=== PATIENT | male | born 1960 | race Caucasian/White ===

== ENCOUNTER 2019-10-29 06:58 | Day surgery (SDC) | payer OTHER ==
[~2019-10-29 06:58] MED LIST: Acetaminophen TAB* 325 MG PO ONE; Buffered Lidocaine 1% SYRIN* 1 ML/SYRINGE INTRADERM ONE; Famotidine IV* 10 MG/ML 2 ML (20 mg) IV ONE; Lactated Ringers 1000 ML Bag* 1,000 ML IV SCH
[2019-10-29] MEDS ORDERED: Acetaminophen TAB* 325 MG ONE (07:19)
[2019-10-29] MEDS ORDERED: Clindamycin 900 MG/D5W BAG(*) 900 MG/50 ML BAG IVPB ONE (07:19)
[2019-10-29] MEDS ORDERED: Famotidine IV* 10 MG/ML 2 ML (20 mg) ONE (07:20)
[2019-10-29] MEDS ORDERED: Midazolam* 1 MG/ML 2 ML VIAL (2 MG) ONE (08:10)
[2019-10-29] MEDS ORDERED: fentaNYL* 50 MCG/ML 2 ML VIAL (100 MCG VIAL) ONE ×2 (08:10→09:43)
[2019-10-29] MEDS ORDERED: Bupivacaine 0.25% SDV* 30 ML ONE (08:36)
[2019-10-29] MEDS ORDERED: Lidocaine 1% MPF* 2 ML VIAL ONE (08:38)
[2019-10-29] MEDS ORDERED: Betamethasone INJ* 6 MG/ML 5 ML VIAL (30 MG) ONE (08:38)
[2019-10-29] MEDS ORDERED: Lidocaine 2% PF * 5 ML VIAL ONE (08:51)
[2019-10-29] MEDS ORDERED: Levalbuterol HFA INHALER* 1 PUFF MDI ONE (09:32)
[2019-10-29] MEDS ORDERED: Ondansetron INJ* 2 MG/ML VIAL ONE (09:34)
[2019-10-29] MEDS ORDERED: Propofol* 10 MG/ML 20 ML BTL ONE (09:34)
[2019-10-29] MEDS ORDERED: diPHENhydraMINE IV* 50 MG/ML 1 ml VIAL (BENADRYL) IV PRN (09:39)
[2019-10-29] MEDS ORDERED: HYDROcodone/ACETAMIN 5-325 MG* 1 TAB PO PRN (09:39)
[2019-10-29] MEDS ORDERED: DiMENhydriNATE IV* 50 MG/ML VIAL IV PUSH PRN (09:39)
[2019-10-29] MEDS ORDERED: Ondansetron INJ* 2 MG/ML VIAL IV PRN (09:39)
[2019-10-29] MEDS ORDERED: Naloxone* 0.4 MG/ML 1 ML VIAL IV PRN (09:39)
[2019-10-29] MEDS ORDERED: Levalbuterol 1.25MG/0.5ML NEB INH PRN (09:39)
[2019-10-29 10:49] VITALS: BP 121/78
--- NOTE | 2019-10-30 20:25 | OP ---
DATE OF OPERATION: 10/29/19 - [facility] DATE OF : 60 SURGEON: Feliciano Leach MD MUCK MINER: RAFAEL Henao. An assistant chief nursing officer was needed for the procedure to aid in positioning of the arm and retraction. ANESTHESIOLOGIST: Dr. Melvin. ANESTHESIA: General. PRE-OP DIAGNOSES: 1. Right middle trigger finger. 2. Right carpal tunnel syndrome. 3. Right cubital tunnel syndrome. 4. Left thumb carpometacarpal degenerative joint disease. POST-OP DIAGNOSES: 1. Right middle trigger finger. 2. Right carpal tunnel syndrome. 3. Right cubital tunnel syndrome. 4. Left thumb carpometacarpal degenerative joint disease. OPERATIVE PROCEDURE: 1. Right middle trigger finger release. 2. Right endoscopic carpal tunnel release. 3. Right in situ cubital tunnel release. 4. Left thumb carpometacarpal joint steroid injection. INDICATIONS: Mr. Field has the aforementioned conditions. He actually has bilateral carpal and cubital tunnel syndrome. We decided to proceed with the right side first. Additionally, he gets the thumb base pain, so we decided to try a steroid injection there. We discussed risks and benefits. He wanted to proceed. ESTIMATED BLOOD LOSS: 2 mL. COMPLICATIONS: None. FINDINGS: See above and below. DESCRIPTION OF PROCEDURE: Mr. Field was seen in the preoperative holding area. The correct site, side, and procedures were identified. We came back to the operating room. The arm was prepped and draped in the usual fashion and a time-out was performed. The arm was exsanguinated with the Esmarch and the tourniquet was inflated. Initially, I went ahead and prior to draping, I had injected the left thumb carpometacarpal joint with 2 mL of 1% lidocaine and 12 mg of betamethasone using a 25-gauge needle. After the draping was done, I made a 1 cm longitudinal incision over the A1 carolina of the right middle finger. Dissection was carried down. Full- thickness flaps were raised off the tendon sheath. The A1 carolina was incised longitudinally. The tenotomy scissors were used to complete the release distally and proximally. Once there was full release of the A1 carolina and of the fascia proximal to that, I irrigated out the wound and skin was closed with 4-0 nylon suture. I then made a 1 cm transverse incision just ulnar to the palmaris longus tendon. Dissection was carried down through the subcutaneous tissue and the distal antebrachial fascia was spread transversely with the tenotomy scissors. A 2-prong skin hook was placed. The carpal tunnel was dilated open and then the MicroAire endoscopic carpal tunnel system was introduced into the carpal tunnel. The release was carried out from distal to proximal. Once I had confirmed that we had excellent release distally, I released the distal antebrachial fascia proximally with the tenotomy scissors. The wound was irrigated out and closed with 4-0 Prolene suture and a Steri-Strip. I then made a curvilinear incision over the cubital tunnel. Dissection was carried down through the subcutaneous tissue. He had a prominent medial antebrachial cutaneous nerve that was preserved throughout the procedure. The fascia overlying the ulnar nerve was released proximally and that was carried out proximally past the arcade of [place] with the use of an appendiceal retractor for visualization. Painting's ligament was then released. The superficial FCU fascia was released. The 2 heads of the FCU were split. The subfascial layer was released. At this point, I confirmed the decompression. There was no ulnar nerve instability, so we obtained hemostasis with the Bovie. Wound was irrigated out. Subcutaneous tissue was reapproximated with 3-0 Vicryl suture. Skin was closed with 3-0 Monocryl and Steri-Strips. 0.25% Marcaine was infiltrated around all of the operative areas. Wounds were dressed and he was taken to the recovery room in stable condition. [id number]/[facility] #: [id number] ROSENDA
== END 2019-10-29 11:15 | disposition home or self-care (01) ==
LOC: OREAST 06:58
PROVIDERS: ATTEND Orthopaedic Surgery Hand Surgery
DX: G56.01 Carpal tunnel syndrome, right upper limb (principal); G56.21 Lesion of ulnar nerve, right upper limb; M65.331 Trigger finger, right middle finger; E11.9 Type 2 diabetes mellitus without complications; Z79.84 Long term (current) use of oral hypoglycemic drugs; J44.9 Chronic obstructive pulmonary disease, unspecified; E78.00 Pure hypercholesterolemia, unspecified; M19.90 Unspecified osteoarthritis, unspecified site; I10 Essential (primary) hypertension; F41.8 Other specified anxiety disorders; I25.10 Atherosclerotic heart disease of native coronary artery without angina pectoris; Z95.2 Presence of prosthetic heart valve; Z95.5 Presence of coronary angioplasty implant and graft; F17.210 Nicotine dependence, cigarettes, uncomplicated
CPT/HCPCS: A9270-GY; J0702; J2250; J2405; J2704; J3010; J3490

== ENCOUNTER 2019-11-15 19:58 | Emergency (ER) | payer OTHER ==
--- OUTSIDE RECORDS SUMMARY | 2019-11-15 20:06 | XMS REPORT | Continuity of Care Document ---
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 Onset: 01/16/2016 Coronary arteriosclerosis Fany Whelan M.D. Onset: 01/25/2015 Chronic obstructive lung disease Arielle Romeo FNP Onset: 09/24/2013 Tobacco user Ingrid Hassan, GLENNY Onset: 08/28/2011 Gastroesophageal reflux disease Ingrid Hassan, GLENNY Onset: 08/28/2011 Benign essential hypertension Ingrid Hassan, TRENCHER DRIVER Onset: 08/28/2011 Heart valve replacement Carlos Amaral M.D., Onset: 02/19/2017 [facility] Mitral valve disorder Carlos Amaral M.D., Onset: 02/19/2017 [facility] Electrocardiogram abnormal Carlos Amaral M.D., Onset: 02/19/2017 [facility] Hyperlipidemia Carlos Amaral M.D., Onset: 02/19/2017 [facility] Ganglion cyst of left wrist Ariel Tate M.D. Onset: 04/15/2018 Depressive disorder Arielle Romeo FNP Onset: 05/28/2018 Disorder of shoulder Annette Mary MD Onset: 07/03/2018 Disorder of bursa of shoulder region Annette Mary MD Onset: 07/03/2018 Localized, primary osteoarthritis of Annette Mary MD Onset: 07/03/2018 the shoulder region Sleep apnea Arielle Romeo FNP Onset: 06/05/2019 Social History Type Date Description Comments Sex Unknown Tobacco Use Start: Unknown current cigarette 3/4 ppd smoker ETOH Use Has consumed alcohol in the past Tobacco Use Start: 11/18/72 Heavy tobacco smoker 1 PPD. Failed (more than 10 chantix. Patches, cigarettes/day) had to stop due to not being able to switch shoulder. Recreational Drug Use Former Drug User marijuana Smoking Status Reviewed: 10/06/19 Heavy tobacco smoker 1 PPD. Failed (more than 10 chantix. Patches, cigarettes/day) had to stop due to not being able to switch shoulder. Allergies, Adverse Reactions, Alerts Active Allergies Reaction Severity Comments Date Shellfish-derived 05/01/2010 Products Penicillin 05/01/2010 Eggplant 07/12/2011 Kern 11/20/2010 IVP Dye 11/20/2010 Altace metalic taste in 06/24/2006 mouth Varenicline Tartrate Nausea and Vomiting 05/28/2018 Ertugliflozin numbness of legs 07/25/2018 Iodine 09/01/2018 Medications Active Medications SIG Qnty Indications Ordering Date Provider Nicotine one a day on dry 28units Z71.6 [place], 10/06/2019 21mg/24HR hairless skin of Jenaris, Patches 24HR arms, chest or [employer] back Cyclobenzaprine HCL 1 by mouth three 30tabs Annette Mary, 06/18/2019 10mg times a day as MD Tablets needed muscle spasms Fluticasone Propionate Use 1 [place] Om 16units [place], 04/22/2019 Each Nostril as Arielle, 50mcg/Act Suspension Needed [employer] Glipizide 1 by mouth every 90tabs [place], 01/25/2019 5mg Tablets day JenniferDIXIE drake Montelukast Sodium take one tablet 90tabs [place], 09/16/2018 10mg by mouth every Jenniferleigh, Tablets evening [employer] Metformin HCL ER take two tablets 60tabs E11.65 [place], 08/28/2018 500mg by mouth once a Jenniferleigh, Tablets ER 24HR day [employer] Diclofenac Sodium ER 1 by mouth every 90tabs [place], 11/20/2017 day with food Christellefervidal, 100mg Tablets ER 24HR [employer] Simvastatin 1 tab by mouth 90tabs E78.5 [place], 03/01/2017 40mg Tablets every evening DIXIE Guzmán Fluocinolone Acetonide apply as needed 60gm Whelan, 08/12/2015 to valeriy Soares M.D. 0.025% Ointment Proair HFA 2 puffs every 4 17.00gm [place], 08/03/2015 108(90Base) hours as needed Arielle mcg/Act Aerosol [employer] Metoprolol Succinate take 1 tablet by 90tabs [place], 07/04/2015 ER mouth every day Arielle, 25mg Tablets ER 24HR [employer] Advair Diskus one inhalation 60units J44.9 [place], 04/15/2015 2x/day mdd 2 Arielle, 250-50mcg/Dose Aerosol inhalation mdd 2 [employer] inhalation Duloxetine HCL 1 by mouth every 90caps [place], 07/27/[address] Ashley Guzmán Zolpidem Tartrate one by mouth 30tabs [place]une, 10mg every night at Arielle Tablets bedtime as needed [employer] insomnia. Reference #: [id number] Pantoprazole Sodium 1 by mouth every 90tabs Clune, 40mg day Arsalan Guzmán DR Aspirin 1 by mouth every Unknown 81mg Tablets day Lisinopril 1 by mouth every 90tabs Clune, 5mg Tablets day DIXIE Guzmán Medications Administered in Office Medication SIG Qnty Indications Ordering Provider Date Methylprednisolone acetate Augustina Cobos, 09/01/2018 (Depomedrol) 80mg injection RPAC Injection Depomedrol 40mg/1cc Augustina Cobos, 09/01/2018 (methylprednisolone acetate) RPAC Injection Methylprednisolone acetate Augustina Cobos, 05/19/2018 (Depomedrol) 80mg injection RPAC Injection Depomedrol 40mg/1cc Augustina Cobos, 05/19/2018 (methylprednisolone acetate) RPAC Injection Methylprednisolone acetate Augustina Cobos, 10/22/2017 (Depomedrol) 80mg injection RPAC Injection Depomedrol 40mg/1cc Augustina Cobos, 10/22/2017 (methylprednisolone acetate) RPAC Injection Depomedrol 40mg/1cc Ally Avelar MD 09/05/2007 (methylprednisolone acetate) Injection Depomedrol 40mg/1cc Ally Avelar MD 06/16/2007 (methylprednisolone acetate) Injection Depomedrol 40mg/1cc Ally Avelar MD 06/16/2007 (methylprednisolone acetate) Injection Immunizations CPT Code Status Date Vaccine Lot # [id number] Given 10/06/2019 Influenza Virus Vaccine, Quadrivalent, 36 Mos+, [id number] .[id number] 43024 Given 08/28/2018 Influenza Virus Vaccine, Quadrivalent, 36 Mos+, [id number] .[id number] 89339 Given 07/25/2017 Influenza Virus Vaccine, Quadrivalent, Slit Virus, Im Use 25677 Given 09/06/2016 Influenza Virus Vaccine Split Virus Use For [id number] Individual 3Yr Older [id number] Given 07/27/2015 Influenza Vaccine (Fluzone) Age 3 And Older [id number] 37397 Given 07/27/2015 Pneumococcal Conjugate Vaccine 13 Valent For [id number] Intramuscular Use 22909 Given 09/15/2014 flu vaccination 40140 Given 09/24/2013 flu vaccination 67545 Given 12/12/2012 Tdap injection 79850 Given 11/07/2012 flu vaccination 08244 Given 08/29/2011 flu vaccination 37615 Given 10/05/2010 flu vaccination 24437 Given 12/13/2009 H1N1 Immuniation Adminstration 44091 Given 12/13/2009 H1N1 Immuniation Adminstration 13622 Given 10/28/2009 flu vaccination 35286 Given 08/31/2008 flu vaccination 59546 Given 08/21/2007 flu vaccination 19866 Given 02/07/2007 flu vaccination 88950 Given 09/12/2006 flu vaccination 16707 Given 10/08/2005 flu vaccination 37656 Given 09/14/2005 Pneumovax Injection 32898 Given 09/14/2005 Tetnus Injection Vital Signs Date Vital Result Comment 10/06/2019 9:01am BP Systolic 132 mmHg BP Diastolic 83 mmHg Body Temperature 97.5 F Heart Rate 84 /min Respiratory Rate 18 /min Height 71 inches 5'11" Weight 260.38 lb BMI (Body Mass Index) 36.3 kg/m2 BSA (Body Surface Area) 2.36 m2 [place] body weight in kilograms 78 kg O2 % BldC Oximetry 100 % Ra 08/14/2019 1:18pm BP Systolic 126 mmHg BP Diastolic 87 mmHg Body Temperature 98.7 F Heart Rate 91 /min Height 71.5 inches 5'11.50" Weight 254.00 lb BMI (Body Mass Index) 34.9 kg/m2 BSA (Body Surface Area) 2.35 m2 [place] body weight in kilograms 79 kg O2 % BldC Oximetry 97 % Results Test Acquired Date Facility Test Result H/L Range Note Laboratory test 10/06/[address] Vitamin D,1,25 <pending> 1 finding [address] [place], [place] [id number] [phone] Comprehensive 10/06/[address] Glucose 126 mg/dL High 74-106 Metabolic Panel [address] [place] [address] [phone] BUN 17 mg/dL Normal 7-18 Creatinine 0.9 mg/dL Normal 0.6-1.3 Glom Filtration Rate, Estimate >60 mL/min >60 If >60 mL/min >60 2 BUN/Creat 18.8 ratio Sodium 139 mmol/L Normal 136-145 Potassium 4.4 mmol/L Normal 3.5-5.1 Chloride 107 mmol/L Normal 98-107 Carbon Dioxide 29 mmol/L Normal 21-32 Anion Gap 3 mEq/L Low 8-16 Calcium 9.1 mg/dL Normal 8.5-10.1 Total Protein 7.1 g/dL Normal 6.4-8.2 Albumin 4.1 g/dL Normal 3.4-5.0 Globulin 3.0 g/dL Normal 1.9-4.3 Alb/Glob 1.4 ratio Bilirubin,Total 0.4 mg/dL Normal 0.2-1.0 Sgot/Ast 18 U/L Normal 15-37 SGPT/Alt 36 U/L Normal 12-78 Alkaline Phosphatase 90 U/L Normal 45-117 Glycohemoglobin 10/06/[address] Glycohemoglobin 7.2 % High 4.2-6.3 [address] (A1c) [place] [address] [phone] eAG 160 mg/dL Glycohemoglobin 07/21/[address] Glycohemoglobin 7.1 % High 4.2-6.3 4, [address] (A1c) [place] [address] [phone] eAG 157 mg/dL Glycohemoglobin 04/23/[address] Glycohemoglobin 7.4 % High 4.2-6.3 6, [address] (A1c) [place] [address] [phone] eAG 166 mg/dL CBC W/Automated [facility]/23/[address] [facility] [address] White Blood 7.0 K/uL Normal 3.4-10.[address] [place] [address] [phone] Red Blood Count 5.47 M/uL Normal 4.20-5.80 Hemoglobin 13.8 gm/dL Normal 12.8-17.0 Hematocrit 42.8 % Normal 38.0-48.0 Mean Cell Volume 78.2 fl Low 80.0-96.0 Mean Corpuscular HGB 25.2 pg Low 27.0-33.0 Mean Corpuscular HGB Conc 32.2 g/dL Normal 31.7-36.0 Platelet Count 191 K/uL Normal 155-360 Red Cell Distri Width SD 44.7 fl Normal 36-51 Red Cell Distri Width %CV 15.8 % Normal 11.6-15.8 Mean Platelet Volume 11.6 fl High 6.6-10.6 Neut% 64.4 % Normal 33.0-73.0 Lymph % 25.3 % Normal 20.0-42.0 [place] % 8.1 % Normal 0.0-10.0 Eo% 1.6 % Normal 0.0-6.6 Bas% 0.3 % Normal 0.0-1.1 Immature Grans 0.3 % Normal 0.0-5.0 NRBC % 0.0 /100WBC < 10/ 100 WBC Neut# 4.51 K/uL Normal 1.8-7.0 Lymph # 1.77 K/uL Normal 1.0-4.0 [place] # 0.57 K/uL Normal 0.0-0.8 Eos # 0.11 K/uL Normal 0.0-0.5 Baso # 0.02 K/uL Normal 0.0-0.1 Immature Grans Absolute 0.02 K/uL NRBC # 0.00 K/uL 1 E55.9 Z01.818 E11.9 2 Note: Persistent reduction for 3 months or more in an eGFR <60 mL/min/1.73 m2 defines CKD. Patients with eGFR values >/=60 mL/min/1.73 m2 may also have CKD if evidence of persistent proteinuria is present. The original MDRD equation for estimated GFR is not valid for patients less than 18 years of age. Additional information may be found at www.kdoqi.org. 3 Elevated levels of HbA1c suggest the need for more aggressive treatment of glycemia. The [place] [employer] recommends that a primary goal of therapy should be a HbA1c of <7% and that physicians should re-evaluate the treatment regimen in patients with HbA1c values consistently >8%. 4 E11.3293 5 Elevated levels of HbA1c suggest the need for more aggressive treatment of glycemia. The [place] [employer] recommends that a primary goal of therapy should be a HbA1c of <7% and that physicians should re-evaluate the treatment regimen in patients with HbA1c values consistently >8%. 6 E11.9 R23.3 7 Elevated levels of HbA1c suggest the need for more aggressive treatment of glycemia. The [place] [employer] recommends that a primary goal of therapy should be a HbA1c of <7% and that physicians should re-evaluate the treatment regimen in patients with HbA1c values consistently >8%. Procedures Date Code Description Status 08/14/2019 43747 Pare Hyperkeratotic Lesion, 2-4 Completed 07/02/2019 29731 Eye Exam Est Patient Comprehensive Completed 06/04/2019 02384 Radiology, C-Spine, 2 Or 3 Views Completed 05/13/2019 04620 Pare Hyperkeratotic Lesion, 2-4 Completed 05/07/2019 [id number] Diabetic Foot Exam Completed 09/13/2011 [id number] Colonoscopy Completed Medical Devices Description No Information Available Encounters Type Date Location Provider Dx Diagnosis Office Visit 10/06/2019 Family [facility] [place], Z01.818 Encounter for other 9:00a Eliel Guzmán, preprocedural [employer] examination F17.210 Nicotine dependence, cigarettes, uncomplicated G56.22 Lesion of ulnar nerve, left upper limb G56.21 Lesion of ulnar nerve, right upper limb G56.03 Carpal tunnel syndrome, bilateral upper limbs E55.9 Vitamin D deficiency, unspecified Z23 Encounter for immunization Z71.6 Tobacco abuse counseling Office Visit 08/13/2019 9:00a Orthopaedic Office Annette Mary, G56.22 Lesion of ulnar nerve, left upper limb G56.21 Lesion of ulnar nerve, right upper limb G56.03 Carpal tunnel syndrome, bilateral upper limbs E11.9 Type 2 diabetes mellitus without complications Office Visit 07/22/2019 Family [place], E11.3293 Type 2 diab 9:45a Medicine KRISTEL OntiverosP with mild RD nonp rtnop without macular edema, bi I10 Essential (primary) hypertension G47.09 Other insomnia M54.12 Radiculopathy, cervical region Office Visit 06/18/2019 Arian Mary M54.12 Radiculopathy, 10:15a Office MD Annette cervical region Office Visit 06/04/2019 Arian Mary M75.101 Unsp rotatr-cuff 1:00p Office MD Annette tear/ruptr of right shoulder, not trauma M75.41 Impingement syndrome of right shoulder M19.011 Primary osteoarthritis, right shoulder M54.12 Radiculopathy, cervical region G56.01 Carpal tunnel syndrome, right upper limb Office Visit 04/23/2019 Family Romeo, E11.9 Type 2 diabetes 9:30a Medicine DIXIE Ontiveros mellitus without RD complications I10 Essential (primary) hypertension F17.210 Nicotine dependence, cigarettes, uncomplicated J44.9 Chronic obstructive pulmonary disease, unspecified R23.3 Spontaneous ecchymoses Office Visit 04/09/2019 Arian Mary M75.101 Unsp rotatr-cuff 1:15p Office MD Annette tear/ruptr of right shoulder, not trauma M75.41 Impingement syndrome of right shoulder M19.011 Primary osteoarthritis, right shoulder G56.01 Carpal tunnel syndrome, right upper limb Assessments Date Code Description Provider 10/06/2019 Z01.818 Encounter for other preprocedural Arielle Romeo FNP examination 10/06/2019 F17.210 Nicotine dependence, cigarettes, Arielle Romeo, [facility] uncomplicated 10/06/2019 G56.22 Lesion of ulnar nerve, left upper limb [place], [facility] 10/06/2019 G56.21 Lesion of ulnar nerve, right upper limb [place], Arielle, [facility] 10/06/2019 G56.03 Carpal tunnel syndrome, bilateral upper [facility], [facility] limbs 10/06/2019 E55.9 Vitamin D deficiency, unspecified [facility] 10/06/2019 Z23 Encounter for immunization [facility] 10/06/2019 Z71.6 Tobacco abuse counseling [facility] 08/14/2019 E11.9 Type 2 diabetes mellitus without True Hi DPM complications 08/14/2019 L84 Corns and callosities True Hi DPM 08/13/2019 G56.22 Lesion of ulnar nerve, left upper limb Annette Mary MD 08/13/2019 G56.21 Lesion of ulnar nerve, right upper limb Annette Mary MD 08/13/2019 G56.03 Carpal tunnel syndrome, bilateral upper Annette Mary MD limbs 08/13/2019 E11.9 Type 2 diabetes mellitus without Annette Mary MD complications 07/22/2019 E11.3293 Type 2 diabetes mellitus with mild [facility] nonproliferative diabetic retinopathy without macular edema, bilateral 07/22/2019 I10 Essential (primary) hypertension [facility], [facility] 07/22/2019 G47.09 Other insomnia [facility], [facility] 07/22/2019 M54.12 Radiculopathy, cervical region [facility], [facility] 07/02/2019 E11.3293 Type 2 diabetes mellitus with mild Sudheer Perdomo MD nonproliferative diabetic retinopathy without macular edema, bilateral 07/02/2019 H25.813 Combined forms of age-related cataract, Sudheer Perdomo MD bilateral 07/02/2019 H04.123 Dry eye syndrome of bilateral lacrimal Sudheer Perdomo MD glands 06/18/2019 M54.12 Radiculopathy, cervical region Annette Mary MD 06/04/2019 M75.101 Unspecified rotator cuff tear or Annette Mary MD rupture of right shoulder, 06/04/2019 M75.41 Impingement syndrome of right shoulder Annette Mary MD 06/04/2019 M19.011 Primary osteoarthritis, right shoulder Annette Mary MD 06/04/2019 M54.12 Radiculopathy, cervical region Annette Mary MD 06/04/2019 G56.01 Carpal tunnel syndrome, right upper Annette Mary MD limb 05/13/2019 E11.9 Type 2 diabetes mellitus without True Hi DPM complications 05/13/2019 L84 Corns and callosities True Hi DPM 04/23/2019 E11.9 Type 2 diabetes mellitus without Arielle Romeo FNP complications 04/23/2019 I10 Essential (primary) hypertension Arielle Romeo FNP 04/23/2019 F17.210 Nicotine dependence, cigarettes, Arielle Romeo FNP uncomplicated 04/23/2019 J44.9 Chronic obstructive pulmonary disease, Arielle Romeo FNP unspecified 04/23/2019 R23.3 Spontaneous ecchymoses Arielle Romeo FNP 04/09/2019 M75.101 Unspecified rotator cuff tear or Annette Mary MD rupture of right shoulder, 04/09/2019 M75.41 Impingement syndrome of right shoulder Annette Mary MD 04/09/2019 M19.011 Primary osteoarthritis, right shoulder Annette Mary MD 04/09/2019 G56.01 Carpal tunnel syndrome, right upper Annette Mary MD limb Plan of Treatment Future Appointment(s):11/20/2019 8:20 am - True Hi DPM at Podiatry [email or web address]/25/2019 9:00 am - Arielle Romeo FNP at [facility]04/01/2020 9:15 am - Sudheer Perdomo MD at [facility]/19/2019 - Arielle Romeo FNPZ01.818 Encounter for other preprocedural examinationComments: Philipp is at higher than average risk for this proposed low to moderate risk procedure due to his chronic medical conditions of COPD, heart disease and DM as well as smoking history. Smoking addressed as noted below. Diabetes while not ideally controlled, has been stable. Heart disease to be assessed by cardiology and as long as stable, there is no contra-indications for the proposed surgery from a primary care perspective.F17.210 Nicotine dependence, cigarettes, uncomplicatedComments:Discussed effects of smoking on wound healing , possible delay in healing and poorer outcomes. Reviewed use of nicotine patches, remove patches if desire a cigarette, trouble shooting for methods to help patches remain on.G56.22 Lesion of ulnar nerve, left upper limbG56.21 Lesion of ulnar nerve, right upper limbG56.03 Carpal tunnel syndrome, bilateral upper eginwO06.9 Vitamin D deficiency, unspecifiedComments:will recheck Vitamin D as you have been low in the pastZ23 Encounter for immunizationComments:yearly influenza immunization given jnbyzD41.6 Tobacco abuse counselingNew Medication: Nicotine 21 mg/24HR - one a day on dry hairless skin of arms, chest or backComments:Discussed using patches and methods to help patches stay onWill use patches before and after surgery Functional Status Functional Condition Comment Date Status Independent with all ADL's Active Bifocal glasses Active Cpap hasn't f/u with Saavedra for device Active Mental Status Description No Information Available Referrals Refer to Reason for Referral Status Appt Date Feliciano Leach MD Bilateral cubital tunnel syndrome and Patient Notified 08/28/2019 neuropathy [facility] [address] [place] [address] [phone] Lamin Lock MD Multilevel cervical degenerative disc Closed disease with compression of the nerves. Philipp, Please shredder picker your imaging CD at our office prior to your next appointment. Thank you. Denia 06/24/19 - followed up on referral. Office tried Philipp. No return call. 06/24/19 - Spoke with patient. He will call their office. Denia 06/24/19 - Philipp states he was hung up on 4 times and will go back to Dr. Sanchez. [address] [place] [address] [phone]
--- OUTSIDE RECORDS SUMMARY | 2019-11-15 20:06 | XMS REPORT | Continuity of Care Document ---
:1960 External Reference #:[id number] Author Name Feliciano Leach MD (transmitted by agent of provider Esmer Klein) Address [address] [place] [address] Care Team Providers Name Role Phone Franck Estrada MD - Physical Care Team Information Cotton Buyer [phone] Medicine & Rehabilitation Aleksandra Patel MD - Family Medicine Care Team Information [employer] Buyer Problems Active Problems Provider Date Cervical disc disorder True Sanchez M.D. Onset: 02/27/2017 Social History Type Date Description Comments Sex Unknown ETOH Use Denies alcohol use Recreational Drug Use Denies Drug Use Tobacco Use Start: Unknown Heavy tobacco smoker (more than 10 cigarettes/day) Smoking Status Reviewed: 10/02/19 Heavy tobacco smoker (more than 10 cigarettes/day) Exercise Type/Frequency Does not exercise Allergies, Adverse Reactions, Alerts Active Allergies Reaction Severity Comments Date Penicillin 10/31/2011 contrast dye 10/31/2011 Shellfish Derived Products 02/06/2017 Eggplant 02/06/2017 [place] 02/06/2017 Altace metallic taste in mouth 02/06/2017 Medrol skin crawling/red blotches 02/27/2017 Medications Active Medications SIG Qnty Indications Ordering Date Provider Cyclobenzaprine HCL 1 tab by mouth 90tabs Vassilios 08/05/2019 10mg every 8 hours as MD Ashvin Tablets needed muslce ache Glipizide TK 1 T PO qd Unknown 5mg Tablets Diclofenac Sodium ER TK 1 T PO qd WF Unknown 100mg Tablets ER 24HR Aspirin 1 by mouth every Unknown 325mg Tablets day Simvastatin 1 by mouth every Unknown 20mg Tablets night Montelukast Sodium 1 by mouth every Unknown 10mg day Tablets Ambien 1 by mouth every Unknown 10mg Tablets night at bedtime as needed sleep insomnia Metformin HCL ER take one tablets Unknown 750mg by mouth every Tablets ER 24HR day Lisinopril 1 by mouth every Unknown 2.5mg Tablets day Advair Diskus 1 puff by mouth Unknown twice a day 250-50mcg/Dose Aerosol Proair HFA 2 puffs by mouth Unknown 108(90Base) every 4 hours as mcg/Act Aerosol needed Fluocinolone Acetonide apply prn skin Unknown Betamethasone Valerate apply to rash Unknown on neck and arms twice a day. prn Pantoprazole Sodium 1 by mouth every Unknown 40mg day Tablets DR Duloxetine HCL 1 by mouth every Unknown 60mg Caps DR day Part Flonase inhale 1 spray Unknown 50mcg/Act in each nostril Suspension prn Metoprolol Succinate ER 1/2 tab po daily 30tabs Unknown 25mg Tablets ER 24HR Medications Administered in Office Medication SIG Qnty Indications Ordering Provider Date Celestone 3 mg and 3mg Feliciano Leach MD 08/28/2019 Injection Immunizations Description No Information Available Vital Signs Date Vital Result Comment 10/02/2019 10:36am Height 70 inches 5'10" Weight 256.38 lb Heart Rate 91 /min BP Systolic Sitting 146 mmHg patient states BP high BP Diastolic Sitting 90 mmHg patient states BP high Respiratory Rate 18 /min Body Temperature 98.8 F Pain Level 6 O2 % BldC Oximetry 96 % BMI (Body Mass Index) 36.8 kg/m2 08/28/2019 7:58am Height 70 inches 5'10" Weight 255.00 lb Heart Rate 74 /min BP Systolic Sitting 136 mmHg BP Diastolic Sitting 86 mmHg Body Temperature 97.6 F Pain Level 7 BMI (Body Mass Index) 36.6 kg/m2 Results Description No Information Available Procedures Date Code Description Status 08/28/2019 46640 Rad Exam; Hand Comp Completed 08/28/2019 81324 Rad Exam; Elbow, Comp Completed 08/28/2019 05951 Inject/Drain Joint/Bursa Major W/O US Completed 07/14/2019 68446 Nerve Conduction 07-08 Studies Completed 07/14/2019 08234 Needle Electromyography Each Extremity W/Related Completed Paraspinal Areas Medical Devices Description No Information Available Encounters Type Date Location Provider Dx Diagnosis Office Visit 08/28/2019 [facility] Feliciano Leach, G56.03 Carpal tunnel 8:00a at [place] MD syndrome, bilateral upper limbs 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, 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, l hand M65.331 Trigger finger, right middle finger M75.22 Bicipital tendinitis, left shoulder M25.529 Pain in unspecified elbow M25.549 Pain in joints of unspecified hand Office Visit 08/05/2019 [facility] M54.12 Radiculopathy, 1:00p [facility] RAFAEL Vallejo cervical region G56.01 Carpal tunnel syndrome, right upper limb Office Visit 06/26/2019 [facility] M47.892 Other spondylosis, 2:30p [facility] RAFAEL Vallejo cervical region M48.02 Spinal stenosis, cervical region Assessments Date Code Description Provider 10/02/2019 G56.03 Carpal tunnel syndrome, bilateral upper limbs Feliciano Leach MD 10/02/2019 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, bilateral upper limbs Feliciano Leach MD 10/02/2019 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, left hand 10/02/2019 M65.331 Trigger finger, right middle finger Feliciano Leach MD 10/02/2019 M75.22 Bicipital tendinitis, left shoulder Feliciano Leach MD 10/02/2019 M25.529 Pain in unspecified elbow Feliciano Leach MD 10/02/2019 M25.549 Pain in joints of unspecified hand Feliciano Leach MD 08/28/2019 G56.03 Carpal tunnel syndrome, bilateral upper limbs Feliciano Leach MD 08/28/2019 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, bilateral upper limbs Feliciano Leach MD 08/28/2019 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, left hand 08/28/2019 M65.331 Trigger finger, right middle finger Feliciano Leach MD 08/28/2019 M75.22 Bicipital tendinitis, left shoulder Feliciano Leach MD 08/28/2019 M25.529 Pain in unspecified elbow Feliciano Leach MD 08/28/2019 M25.549 Pain in joints of unspecified hand Feliciano Leach MD 08/05/2019 M54.12 Cervical radiculopathy RAFAEL Bynum 08/05/2019 G56.01 Carpal tunnel syndrome RAFAEL Bynum 07/14/2019 G56.03 Carpal tunnel syndrome, bilateral upper limbs Ronald Sanders MD 07/14/2019 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, bilateral upper limbs Ronald Sanders MD 06/26/2019 M47.892 Cervical spondylosis RAFAEL Bynum 06/26/2019 M48.02 Spinal stenosis, cervical region RAFAEL Bynum Plan of Treatment Future Appointment(s):11/20/2019 8:00 am - Feliciano Leach MD at [facility] at [id number]/12/2019 2:00 pm - Feliciano Leach MD at [facility] at [id number]/02/2019 - Feliciano Leach MDG56.03 Carpal tunnel syndrome, bilateral upper limbsFollow up:Follow up: 10-14 days shzlqeY46.23 Lesion of ulnar nerve, bilateral upper tuooqV56.12 Unilateral primary osteoarthritis of first carpometacarpal joint, left handM65.331 Trigger finger, right middle cfmenvK04.22 Bicipital tendinitis, left joyvaczoZ06.529 Pain in unspecified bgpqzL39.549 Pain in joints of unspecified hand Functional Status Description No Information Available Mental Status Description No Information Available Referrals Refer to Reason for Referral Status Appt Date Tamra Pete M.D. 59 y/o right hand dominant male with Created / findings consistent with carpal tunnel of the right hand. [address] [facility] [place] [address] [place] [address] [phone]
[2019-11-15 20:28] VITALS: BP 123/63
--- NOTE | 2019-11-15 20:42 | UC ---
General HPI - HPI Summary HPI Summary: Patient is 59 year old gentleman , who present today to the urgent care with possible surgical site infection of the right hand. He reports that he had right hand,wrist and elbow surgery on 10/29/[address] Leach. He had trigger finger release of right mid finger, carpal tunnel release , elbow surgery was to "move the nerve". Sutures are still intact. Redness and purulence noted on right middle finger incison. He reports that he was able to express some purulent discharge before. Slightly painful Denies any fever, chills, chest pain or shortness of breath . Denies any abdominal pain , nausea or vomiting , diarrhea or constipation. He is scheduled to follow with Dr. Leach on November 20. - History of Current Complaint Chief Complaint: UCUpperExtremity Stated Complaint: RIGHT HAND COMPLAINT Time Seen by Provider: 11/15/19 20:32 Hx Obtained From: Patient Pain Intensity: 7 - Allergy/Home Medications Allergies/Adverse Reactions: Allergies Allergy/AdvReac Type Severity Reaction Status Date / Time iodine Allergy ALLERY TO Verified 11/15/19 20:15 SHELLFISH AND CONTRAST DYE latex Allergy ITCHY Verified 11/15/19 20:15 Penicillins Allergy Itching Verified 11/15/19 20:15 ramipril [From Altace] Allergy METALLIC Verified 11/15/19 20:15 TASTE IN MOUTH shellfish derived Allergy Hives Verified 11/15/19 20:15 IV contrast dye Allergy Severe Hives Uncoded 11/15/19 20:15 METHYL PRENDISOLONE Allergy Severe Rash And Uncoded 11/15/19 20:15 Itching CITRUS Allergy GI Upset Uncoded 11/15/19 20:15 EGGPLANT Allergy TONGUE Uncoded 11/15/19 20:15 SWELLING PMH/Surg Hx/FS Hx/Imm Hx - Additional Past Medical History Additional PMH: Past Medical History : Hypertension, diabetes mellitus, asthma, open-heart surgery for aVR and MB repair, sepsis after open-heart surgery Past Surgical History: cardiac stents x10 ( PT DOES NOT HAVE COPIES OF CARDS FOR ALL OF STENTS) Lt KNEE - REPLACEMENT HERNIA - 6x GASTRIC BYPASS mitral & aortic valve replacements- Family History : non contributory Social History : No alcohol, daily smoker, no drug use. Previously Healthy: Yes - Surgical History Surgical History: Yes Surgery Procedure, Year, and Place: cardiac stents x10 ( PT DOES NOT HAVE COPIES OF CARDS FOR ALL OF STENTS). Lt KNEE - REPLACEMENT. HERNIA - 6x. GASTRIC BYPASS. mitral & aortic valve replacements-. RIGHT TOTAL KNEE REPLACEMENT. RIGHT SHOULDER SURGERY-2018. 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 Review of Systems All Other Systems Reviewed And Are Negative: Yes Constitutional: Positive: Negative Skin: Positive: Other - Surgical site infection of the right hand Eyes: Positive: Negative ENT: Positive: Negative Respiratory: Positive: Negative Cardiovascular: Positive: Negative Gastrointestinal: Positive: Negative Genitourinary: Positive: Negative Motor: Positive: Negative Neurovascular: Positive: Negative Musculoskeletal: Positive: Negative Neurological: Positive: Negative Psychological: Positive: Negative Is Patient Immunocompromised?: No Physical Exam - Summary Physical Exam Summary: Vital Signs Reviewed: Yes A+Ox3, no distress Eyes: Conjunctiva Clear ENT: Hearing grossly normal neck: supple Respiratory: Positive: No respiratory distress, No accessory muscle use Cardiovascular: skin color reflect adequate perfusion Musculoskeletal Exam: VEGA x 4 without difficulty Neurological: Positive: Alert, ambulatory without difficulty Psychological: Positive: Normal Response To Family Skin: Surgical site incision of the right hand middle finger- triggers finger surgery site with intact sutures, and surrounding erythema . Small amount of pus was expressed upon compression. No significant active drainage. Slightly tender to palpate. No fluctuation Wrist incision minimal redness but no drainage or fluctuation Triage Information Reviewed: Yes Vital Signs: Initial Vital Signs Temp 98.3 F 11/15/19 20:18 Pulse 79 11/15/19 20:18 Resp 16 11/15/19 20:18 BP 123/63 11/15/19 20:18 Pulse Ox 99 11/15/19 20:18 Vital Signs Reviewed: Yes Images Hands: 1 - Incision site Course/Dx - Course Course Of Treatment: During the visit today, small amount of pus was expressed and culture was obtained. He was given first is of clindamycin here and advised that somebody will call him if antibiotics need to be changed based on the culture test results. I advised him to follow up with Dr. Leach tomorrow. Wound was cleaned and dressed here. Expressed understanding - Diagnoses Provider Diagnosis: Surgical site infection Discharge ED - Sign-Out/Discharge Documenting (check all that apply): Patient Departure All imaging exams completed and their final reports reviewed: No Studies - Discharge Plan Condition: Stable Disposition: HOME Prescriptions: Clindamycin Cap(NF) [Clindamycin Cap 300 mg Cap(NF)] 300 mg PO Q6H 10 Days #40 cap Patient Education Materials: Surgical Site Infections (ED) Referrals: Fawn Romeo NP [Primary Care Provider] - Feliciano Leach MD [Medical Doctor] - As Soon As Possible Additional Instructions: You are given the first dose here. Please start taking the medication as prescribed to the pharmacy . Culture Sample from the wound has been taken and will be tested in the lab. Somebody will call you if the antibiotics needs to be changed based on the test results. Maintain hand hygiene Follow up with your orthopedic surgeon tomorrow. Patients blood pressure slightly high in Urgent care today in prehypertensive range , plan follow up with PCP Return to Urgent care / ER if symptoms get worse. - Billing Disposition and Condition Condition: STABLE Disposition: Home
[2019-11-15] MEDS ORDERED: Clindamycin CAP* 150 MG PO ONE (20:57)
== END 2019-11-15 21:32 | disposition home or self-care (01) ==
LOC: UCCORT 19:58
DX: T81.40XA Infection following a procedure, unspecified, initial encounter (principal); I10 Essential (primary) hypertension; E11.9 Type 2 diabetes mellitus without complications; J45.909 Unspecified asthma, uncomplicated; Z88.0 Allergy status to penicillin; Z88.8 Allergy status to other drugs, medicaments and biological substances; Z91.013 Allergy to seafood; Z91.040 Latex allergy status; Z91.041 Radiographic dye allergy status; Z91.018 Allergy to other foods; Z91.048 Other nonmedicinal substance allergy status; Z95.5 Presence of coronary angioplasty implant and graft; Z95.4 Presence of other heart-valve replacement
CPT/HCPCS: 87070; 87077; 87186; 87205; 87640; 87641; 99213; A9270-GY; G0463